=== PATIENT | male | born 2000 | race African-American/Black ===

== ENCOUNTER 2018-08-06 17:41 | Emergency (ER) | payer OTHER ==
[~2018-08-06] VITALS: Ht 172.7 cm; Wt 61.2 kg
[2018-08-06 19:29] VITALS: BP 110/73
[2018-08-06] MEDS ORDERED: BACLOFEN 10 MG TAB PO ONE (19:30)
[2018-08-06] MEDS ORDERED: HYDROcodone-ACET 10/325MG TAB PO ONE (19:30)
== END 2018-08-06 19:55 | disposition home or self-care (01) ==
LOC: ER 17:47
DX: R51 Headache (principal); M62.838 Other muscle spasm
CPT/HCPCS: 70450